=== PATIENT | male | born 1960 | race Two or more races ===

== ENCOUNTER 2018-02-20 14:13 | Inpatient (IN) | payer SELFPAY ==
[~2018-02-20] VITALS: Ht 182.9 cm; Wt 76.7 kg
[2018-02-20] MEDS ORDERED: BP MED (15:02)
[2018-02-20] MEDS ORDERED: SODIUM CHLORIDE 0.9% 1,000 ML IV ONE (15:15)
[2018-02-20 15:42] LABS: INR 1.1; PROTHROMBIN TIME 10.9 sec (9.4-11.6)
[2018-02-20 15:49] LABS: HEMATOCRIT. 23.4 % (42.0-52.0); MEAN CORPUSCULAR HEMOGLOBIN 15.3 pg (28.0-32.0); MEAN CORPUSCULAR VOLUME 54.7 fL (80.0-94.0); MEAN PLATELET VOLUME 8.3 fl (7.4-10.4); PLATELET 569 x1000/uL (130-400); RED BLOOD CELL COUNT 4.29 mill/uL (4.7-6.1); RED CELL DISTRIBUTION WIDTH 21.7 % (11.6-14.6)
[2018-02-20 15:53] LABS: HEMOGLOBIN. 6.6 g/dL (14.0-18.0)
[2018-02-20 16:00] LABS: CHLORIDE 104 mEq/L (98-107)
[2018-02-20 16:18] LABS: HEPATITIS B SURFACE ANTIGEN NEGATIVE
[2018-02-20 16:42] LABS: CLARITY URINE CLEAR (CLEAR); COLOR URINE YELLOW (YELLOW); KETONES URINE NEGATIVE (NEGATIVE); LEUKOCYTE ESTERASE URINE NEGATIVE (NEGATIVE); NITRITE URINE NEGATIVE (NEGATIVE); OCCULT BLOOD URINE NEGATIVE (NEGATIVE); PROTEIN URINE NEGATIVE (NEGATIVE); SPECIFIC GRAVITY URINE 1.009 (1.005-1.030); UROBILINOGEN URINE 0.2 E.U./dL (0.2-1.0)
[2018-02-20 16:46] LABS: HEPATITIS B CORE AB IGM NEGATIVE
[2018-02-20 16:47] LABS: HEPATITIS A AB IGM NEGATIVE (NEGATIVE)
[2018-02-20 16:52] LABS: *BARBITURATES SCREEN URINE NEGATIVE (NEGATIVE)
[2018-02-20 16:53] LABS: *AMPHETAMINES SCREEN URINE NEGATIVE (NEGATIVE); *BENZODIAZEPINES SCREEN URINE NEGATIVE (NEGATIVE); *COCAINE SCREEN URINE NEGATIVE (NEGATIVE); METHADONE URINE SCREEN NEGATIVE (NEGATIVE); OPIATES URINE SCREEN PRESUMTIVE POSITIVE (NEGATIVE); PHENCYCLIDINE URINE SCREEN NEGATIVE (NEGATIVE)
[2018-02-20 16:54] LABS: CANNABINOID URINE SCREEN NEGATIVE (NEGATIVE)
[2018-02-20] MEDS ORDERED: ACETAMINOPHEN 325MG TABLET PO PRN (19:00)
[2018-02-20 19:20] LABS: PLATELET ESTIMATE INCREASED
[2018-02-20] MEDS ORDERED: OLME40TA12 PO (19:26)
[2018-02-20] MEDS ORDERED: TRAMADOL 50MG TABLET PO PRN (19:30)
[2018-02-20 20:00] VITALS: BP 115/72
[2018-02-20] MEDS ORDERED: DIPHENHYDRAMINE 50MG/ML VIAL IV PRN (20:15)
[2018-02-20 20:35] VITALS: BP 128/76
[2018-02-20 20:50] VITALS: BP 131/80
[2018-02-20] MEDS ORDERED: POTASSIUM CHLORIDE 20MEQ TABLET SR PO NR (21:00)
[2018-02-20] MEDS ORDERED: ZOLPIDEM TARTRATE 5MG TABLET PO PRN (21:00)
[2018-02-20 21:50] VITALS: BP 137/78
[2018-02-20 22:50] VITALS: BP 131/77
[2018-02-20 23:49] VITALS: BP 109/61
[2018-02-21] VITALS (11 sets, daily range): BP systolic 109–130; BP diastolic 61–82
[2018-02-21] MEDS ORDERED: LOSARTAN POTASSIUM 100 MG TABLET PO SCH (09:00)
[2018-02-21 10:09] LABS: HEMATOCRIT 29.7 % (42.0-52.0); HEMOGLOBIN 8.8 g/dL (14.0-18.0)
== END 2018-02-21 18:40 | disposition home or self-care (01) | DRG 663 ==
LOC: ER 14:13 → 6EST 17:20 → ENRESERV 17:51
PROVIDERS: ADMIT Specialist; ATTEND Specialist
PROC: 30233N1 Transfusion of Nonautologous Red Blood Cells into Peripheral Vein, Percutaneous Approach (ICD-10-PCS; principal; 2018-02-20)
DX: D62 Acute posthemorrhagic anemia (principal); K51.80 Other ulcerative colitis without complications; I10 Essential (primary) hypertension; F17.200 Nicotine dependence, unspecified, uncomplicated; E87.6 Hypokalemia; D50.0 Iron deficiency anemia secondary to blood loss (chronic); N40.0 Benign prostatic hyperplasia without lower urinary tract symptoms; Z79.899 Other long term (current) drug therapy; Z82.49 Family history of ischemic heart disease and other diseases of the circulatory system; Z80.0 Family history of malignant neoplasm of digestive organs
CPT/HCPCS: 36415; 80053; 80305; 81003; 83036; 85014; 85018; 85025; 85610; 85651; 86705; 86709; 86803; 86850; 86900; 86920; 87340; 93005; 96360; 96361; 99285; J7030; P9016

== ENCOUNTER 2019-08-24 10:13 | Inpatient (IN) | payer BC ==
[~2019-08-24] VITALS: Ht 182.9 cm; Wt 79.1 kg
[~2019-08-24 10:13] MED LIST: BP MED; LACTATED RINGERS 1,000 ML IV SCH; OLME40TA11 PO
[2019-08-24] MEDS ORDERED: BALS750C6 PO (11:31)
[2019-08-24] MEDS ORDERED: OLME1TAB44 PO (11:32)
[2019-08-24] MEDS ORDERED: BUPIVACAINE HCL 0.5% (5MG/ML) 50ML ONE (11:48)
[2019-08-24] MEDS ORDERED: PROPOFOL 200MG/20ML VIAL IV ONE (11:51)
[2019-08-24] MEDS ORDERED: MIDAZOLAM HCL 2 MG/2 ML VIAL ONE (11:51)
[2019-08-24] MEDS ORDERED: NEOSTIGMINE METHYLSULFATE 1MG/ML 10 ML VIAL ONE (11:51)
[2019-08-24] MEDS ORDERED: FENTANYL CITRATE/PF 50MCG/ML 2ML VIAL ONE ×3 (11:51→12:37)
[2019-08-24] MEDS ORDERED: ROCURONIUM BROMIDE 10MG/ML VIAL 5ML IV ONE ×2 (11:51→12:07)
[2019-08-24] MEDS ORDERED: GLYCOPYRROLATE 0.2 MG/ML 2ML VIAL ONE (11:51)
[2019-08-24] MEDS ORDERED: DEXAMETHASONE 4MG/ML 1ML VIAL ONE (11:52)
[2019-08-24] MEDS ORDERED: METOCLOPRAMIDE HCL 10MG/2ML VIAL ONE (11:52)
[2019-08-24] MEDS ORDERED: PHENYLEPHRINE HCL 10 MG/ML 1ML (IV VIAL) IV ONE (11:52)
[2019-08-24] MEDS ORDERED: ONDANSETRON HCL 4MG/2ML INJ ONE (11:52)
[2019-08-24] MEDS ORDERED: EPHEDRINE SULFATE 50MG/ML VIAL ONE (11:52)
[2019-08-24] MEDS ORDERED: SUCCINYLCHOLINE CHLORIDE 200MG/10ML IV ONE (11:52)
[2019-08-24] MEDS ORDERED: CEFAZOLIN SODIUM 1000MG/VIAL ONE (11:52)
[2019-08-24] MEDS ORDERED: SODIUM CHLORIDE 0.9% 10ML VIAL ONE (11:52)
[2019-08-24] MEDS ORDERED: LIDOCAINE HCL/PF 1% 10 MG/ML 5ML VIAL ONE (11:52)
[2019-08-24] MEDS ORDERED: GENTAMICIN SULF 40MG/ML 2ML VIAL ONE (12:18)
[2019-08-24] MEDS ORDERED: SODIUM CHLORIDE 0.9% 1,000 ML IV ONE (13:48)
[2019-08-24] MEDS ORDERED: MEPERIDINE HCL/PF 25MG/ML CPJ IV PRN ×2 (14:00)
[2019-08-24] MEDS ORDERED: ONDANSETRON HCL 4MG/2ML INJ IV PRN (14:00)
[2019-08-24] MEDS ORDERED: MORPHINE SULFATE 2 MG/ML CPJ (NOT FOR IM USE) IV PRN (14:00)
[2019-08-24] MEDS ORDERED: LORAZEPAM 1MG TABLET PO PRN (14:15)
[2019-08-24] MEDS ORDERED: MAGNESIUM HYDROXIDE 400MG/5ML 30ML UDC PO PRN (14:15)
[2019-08-24] MEDS: HYDROMORPHONE HCL/PF 2MG/ML CPJ IV PRN ×5 (14:27→15:54)
[2019-08-24] MEDS ORDERED: OPIUM/BELLADONNA ALKALOIDS 30/16.2MG SUPP PR NR (14:30)
[2019-08-24] MEDS ORDERED: OXYBUTYNIN CHLORIDE 5MG TABLET PO NR (14:30)
[2019-08-24] MEDS ORDERED: LORAZEPAM 2MG/ML CPJ ONE (15:42)
[2019-08-24 15:43] LABS: HEMATOCRIT 43.7 % (42.0-52.0); HEMOGLOBIN 13.8 g/dL (14.0-18.0)
[2019-08-24] MEDS ORDERED: LORAZEPAM 2MG/ML CPJ IV NR (16:00)
[2019-08-24] MEDS ORDERED: LABETALOL HCL 5MG/ML VIAL 20ML IV ONE (16:26)
[2019-08-24] MEDS ORDERED: LABETALOL 5MG/ML SYR 20 MG/4 ML SYRINGE IV NR ×2 (16:30→17:00)
[2019-08-24] MEDS ORDERED: DIPHENHYDRAMINE INJ IV PRN (17:15)
[2019-08-24] MEDS ORDERED: CLONIDINE 0.1MG TABLET PO NR (17:15)
[2019-08-24] MEDS ORDERED: MORPHINE PCA 50MG/50ML IV PRN (17:15)
[2019-08-24] MEDS ORDERED: ONDANSETRON INJ IV PRN (17:15)
[2019-08-24] MEDS ORDERED: NALOXONE INJ IV PRN (17:15)
[2019-08-24] MEDS: LOSARTAN POTASSIUM 100 MG TABLET PO SCH (17:37)
[2019-08-24] MEDS ORDERED: METOPROLOL TARTRATE 5MG/5ML VIAL IV PRN (18:45)
[2019-08-24] MEDS ORDERED: IPRATROPIUM/ALBUTEROL 0.5-3(2.5)MG/3ML NEB HHN PRN (18:45)
[2019-08-24 20:00] VITALS: BP 133/96
[2019-08-24] MEDS: OXYBUTYNIN CHLORIDE 5MG TABLET PO SCH (23:15)
[2019-08-24] MEDS: DEXT 5%/0.9% NACL 1,000 ML IV SCH (23:16)
[2019-08-25] VITALS: BP 119/87
[2019-08-25] MEDS: OPIUM/BELLADONNA ALKALOIDS 30/16.2MG SUPP PR SCH ×3 (00:29→23:48)
[2019-08-25] MEDS ORDERED: GENTAMICIN 80MG PREMIX 100 ML IV NR (02:00)
[2019-08-25 04:00] VITALS: BP 117/74
[2019-08-25] MEDS: OXYBUTYNIN CHLORIDE 5MG TABLET PO SCH ×3 (06:46→21:31)
[2019-08-25 07:21] LABS: HEMATOCRIT. 34.1 % (42.0-52.0); HEMOGLOBIN. 10.7 g/dL (14.0-18.0); MEAN CORPUSCULAR HEMOGLOBIN 25.2 pg (28.0-32.0); MEAN CORPUSCULAR VOLUME 80.4 fL (80.0-94.0); MEAN PLATELET VOLUME 7.1 fl (7.4-10.4); PLATELET 377 x1000/uL (130-400); RED BLOOD CELL COUNT 4.24 mill/uL (4.7-6.1); RED CELL DISTRIBUTION WIDTH 18.4 % (11.6-14.6)
[2019-08-25 07:34] LABS: CHLORIDE 105 mEq/L (98-107)
[2019-08-25] MEDS ORDERED: HYDROCODONE/ACETAMINOPHEN 5/325MG TABLET PO PRN (07:45)
[2019-08-25 08:00] VITALS: BP 110/75
[2019-08-25] MEDS: LOSARTAN POTASSIUM 100 MG TABLET PO SCH (09:36)
[2019-08-25] MEDS: DOCUSATE SODIUM 250MG CAPSULE PO SCH (09:36)
[2019-08-25] MEDS: DEXT 5%/0.9% NACL 1,000 ML IV SCH ×2 (09:38→21:38)
[2019-08-25] MEDS ORDERED: GENTAMICIN 80MG PREMIX 100 ML IV SCH (10:00)
[2019-08-25 12:00] VITALS: BP 112/73
[2019-08-25] MEDS: LEVOFLOXACIN 500MG TABLET PO SCH (12:08)
[2019-08-25] MEDS: MORPHINE SULFATE 4 MG/ML CPJ (NOT FOR IM USE) IV PRN (14:37)
[2019-08-25 16:00] VITALS: BP 119/80
[2019-08-25 19:36] LABS: PLATELET ESTIMATE NORMAL
[2019-08-25 20:49] LABS: BASOPHILS % 0.5 % (0.0-2.0); EOSINOPHILS % 0.1 % (0.0-5.0); HEMOGLOBIN. 9.8 g/dL (14.0-18.0); LYMPHOCYTES % 7.8 % (20.0-50.0); MEAN CORPUSCULAR VOLUME 79.5 fL (80.0-94.0); MEAN PLATELET VOLUME 7.5 fl (7.4-10.4); MONOCYTES % 8.5 % (2.0-8.0); NEUTROPHILS % 83.1 % (40.0-76.0); PLATELET 343 x1000/uL (130-400); RED CELL DISTRIBUTION WIDTH 18.3 % (11.6-14.6)
[2019-08-25 21:00] VITALS: BP 142/85
[2019-08-25] MEDS: HYDROCODONE/ACETAMINOPHEN 10/325MG TABLET PO PRN (21:31)
[2019-08-26] VITALS: BP 155/85
[2019-08-26] MEDS: MORPHINE SULFATE 4 MG/ML CPJ (NOT FOR IM USE) IV PRN ×3 (02:08→15:01)
[2019-08-26 04:00] VITALS: BP 126/76
[2019-08-26] MEDS: OXYBUTYNIN CHLORIDE 5MG TABLET PO SCH ×3 (06:32→21:30)
[2019-08-26 07:33] LABS: HEMATOCRIT 27.1 % (42.0-52.0); HEMOGLOBIN 8.8 g/dL (14.0-18.0); MEAN CORPUSCULAR HEMOGLOBIN 25.6 pg (28.0-32.0); MEAN CORPUSCULAR VOLUME 78.8 fL (80.0-94.0); PLATELET 313 x1000/uL (130-400); RED BLOOD CELL COUNT 3.43 mill/uL (4.7-6.1); RED CELL DISTRIBUTION WIDTH 18.3 % (11.6-14.6)
[2019-08-26 07:59] LABS: CHLORIDE 106 mEq/L (98-107)
[2019-08-26 08:00] VITALS: BP 134/79
[2019-08-26] MEDS: OPIUM/BELLADONNA ALKALOIDS 30/16.2MG SUPP PR SCH ×2 (08:55→21:00)
[2019-08-26] MEDS: DOCUSATE SODIUM 250MG CAPSULE PO SCH (08:55)
[2019-08-26] MEDS: LOSARTAN POTASSIUM 100 MG TABLET PO SCH (08:55)
[2019-08-26] MEDS: LEVOFLOXACIN 500MG TABLET PO SCH (11:44)
[2019-08-26] MEDS: HYDROCODONE/ACETAMINOPHEN 10/325MG TABLET PO PRN ×3 (11:55→21:31)
[2019-08-26 12:00] VITALS: BP 134/84
[2019-08-26] MEDS: FERROUS SULFATE 325MG TABLET PO SCH ×2 (15:00→17:44)
[2019-08-26 16:00] VITALS: BP 145/90
[2019-08-26 20:00] VITALS: BP 131/82
[2019-08-27] VITALS: BP 123/75
[2019-08-27 04:00] VITALS: BP 123/75
[2019-08-27] MEDS: OXYBUTYNIN CHLORIDE 5MG TABLET PO SCH ×3 (06:16→22:12)
[2019-08-27] MEDS: HYDROCODONE/ACETAMINOPHEN 10/325MG TABLET PO PRN ×3 (06:17→18:42)
[2019-08-27 07:13] LABS: BASOPHILS % 0.4 % (0.0-2.0); EOSINOPHILS % 0.8 % (0.0-5.0); HEMATOCRIT. 28.1 % (42.0-52.0); HEMOGLOBIN. 8.8 g/dL (14.0-18.0); LYMPHOCYTES % 10.9 % (20.0-50.0); MEAN CORPUSCULAR HEMOGLOBIN 25.2 pg (28.0-32.0); MEAN CORPUSCULAR VOLUME 80.2 fL (80.0-94.0); MEAN PLATELET VOLUME 7.4 fl (7.4-10.4); MONOCYTES % 14.3 % (2.0-8.0); NEUTROPHILS % 73.6 % (40.0-76.0); PLATELET 350 x1000/uL (130-400); RED CELL DISTRIBUTION WIDTH 18.6 % (11.6-14.6)
[2019-08-27 07:27] LABS: CHLORIDE 106 mEq/L (98-107)
[2019-08-27 08:00] VITALS: BP 117/74
[2019-08-27] MEDS: OPIUM/BELLADONNA ALKALOIDS 30/16.2MG SUPP PR SCH ×2 (09:00→22:15)
[2019-08-27] MEDS: LOSARTAN POTASSIUM 100 MG TABLET PO SCH (09:02)
[2019-08-27] MEDS: DOCUSATE SODIUM 250MG CAPSULE PO SCH (09:02)
[2019-08-27] MEDS: MORPHINE SULFATE 4 MG/ML CPJ (NOT FOR IM USE) IV PRN ×3 (09:02→22:13)
[2019-08-27] MEDS: FERROUS SULFATE 325MG TABLET PO SCH ×3 (09:02→17:49)
[2019-08-27] MEDS: LEVOFLOXACIN 500MG TABLET PO SCH (10:21)
[2019-08-27 12:05] VITALS: BP 124/85
[2019-08-27 16:00] VITALS: BP 130/89
[2019-08-27 20:00] VITALS: BP_SYST 134; BP_SYST 147; BP_DIAS 88; BP_DIAS 90
[2019-08-28] VITALS: BP 147/88
[2019-08-28 04:00] VITALS: BP 126/69
[2019-08-28] MEDS: DEXT 5%/0.9% NACL 1,000 ML IV SCH ×2 (06:33→10:03)
[2019-08-28] MEDS: OXYBUTYNIN CHLORIDE 5MG TABLET PO SCH (06:41)
[2019-08-28] MEDS: HYDROCODONE/ACETAMINOPHEN 10/325MG TABLET PO PRN (06:43)
[2019-08-28 08:00] VITALS: BP 128/85
[2019-08-28 08:00] LABS: HEMATOCRIT. 27.3 % (42.0-52.0); HEMOGLOBIN. 8.9 g/dL (14.0-18.0); MEAN CORPUSCULAR HEMOGLOBIN 25.8 pg (28.0-32.0); MEAN CORPUSCULAR VOLUME 79.3 fL (80.0-94.0); MEAN PLATELET VOLUME 7.1 fl (7.4-10.4); PLATELET 391 x1000/uL (130-400); RED BLOOD CELL COUNT 3.44 mill/uL (4.7-6.1); RED CELL DISTRIBUTION WIDTH 17.9 % (11.6-14.6)
[2019-08-28] MEDS: LOSARTAN POTASSIUM 100 MG TABLET PO SCH (09:53)
[2019-08-28] MEDS: FERROUS SULFATE 325MG TABLET PO SCH (09:53)
[2019-08-28] MEDS: DOCUSATE SODIUM 250MG CAPSULE PO SCH (09:53)
[2019-08-28] MEDS: OPIUM/BELLADONNA ALKALOIDS 30/16.2MG SUPP PR SCH (09:56)
[2019-08-28 10:16] LABS: PLATELET ESTIMATE NORMAL
[2019-08-28] MEDS: LEVOFLOXACIN 500MG TABLET PO SCH (11:44)
[2019-08-28] MEDS: MORPHINE SULFATE 4 MG/ML CPJ (NOT FOR IM USE) IV PRN (11:50)
[2019-08-28 12:00] VITALS: BP 119/80
[2019-08-28 13:12] VITALS: BP 119/80
== END 2019-08-28 15:58 | disposition home health service (06) | DRG 707 ==
LOC: OR 10:13 → SUPCPDRO 18:32 → 5WST 20:58 → 6EST 08-25 21:14
PROVIDERS: ADMIT Urology; ATTEND Urology
PROC: 0VT00ZZ Resection of Prostate, Open Approach (ICD-10-PCS; principal; 2019-08-24)
DX: N40.1 Benign prostatic hyperplasia with lower urinary tract symptoms (principal); D62 Acute posthemorrhagic anemia; R65.10 Systemic inflammatory response syndrome (SIRS) of non-infectious origin without acute organ dysfunction; I10 Essential (primary) hypertension; R33.8 Other retention of urine; R31.0 Gross hematuria
CPT/HCPCS: 36415; 71045; 71250; 80048; 80051; 85014; 85018; 85027; 88309; 93005; C1758; J0330; J0690; J1100; J1170; J1580; J2060; J2175; J2250; J2270; J2370; J2405; J2704; J2710; J2765; J3010; J3490; J7042; A4315